=== PATIENT | male | born 1985 | race Two or more races ===

== ENCOUNTER 2021-12-31 21:33 | Emergency (ER) | payer OTHER ==
[~2021-12-31] VITALS: Ht 195.6 cm; Wt 147.4 kg
[2021-12-31] MEDS ORDERED: ELIQUIS5 MG (22:23)
[2021-12-31] MEDS ORDERED: AVAPRO300 MG PO (22:24)
[2021-12-31] MEDS ORDERED: HYDRALAZINE HC100 MG PO (22:24)
[2021-12-31] MEDS ORDERED: NIFEDIPINE20 MG PO (22:24)
[2021-12-31] MEDS ORDERED: FOLIC ACID20 MG (22:25)
[2021-12-31] MEDS ORDERED: NEURONTIN800 MG PO (22:25)
[2021-12-31] MEDS ORDERED: CARVEDILOL6.25 MG PO (22:26)
== END 2022-01-01 00:18 | disposition home or self-care (01) ==
LOC: ER 21:33
DX: L02.212 Cutaneous abscess of back [any part, except buttock and flank] (principal); E11.9 Type 2 diabetes mellitus without complications; I10 Essential (primary) hypertension; I48.91 Unspecified atrial fibrillation; R80.9 Proteinuria, unspecified